=== PATIENT | male | born 1965 | race Caucasian/White ===

== ENCOUNTER 2019-07-01 09:36 | Observation (INO) | payer BC ==
[2019-07-01 13:30] VITALS: BMI 42.8
[2019-07-01] MEDS ORDERED: Ondansetron ODT 4 MG TAB SL PRN (13:35)
[2019-07-01] MEDS ORDERED: Ondansetron PF 4 MG/2 ML Vial IVP PRN (13:35)
[2019-07-01] MEDS ORDERED: Acetaminophen 325 MG TAB PO PRN (13:35)
[2019-07-01] MEDS ORDERED: Dextrose 50% Abboject 50 ML SYRINGE SLOW IVP PRN (15:23)
[2019-07-01] MEDS ORDERED: Dextrose 5% in Water 1,000 ML IV PRN (15:23)
[2019-07-01] MEDS ORDERED: HumaLOG 300 UNITS/3 ML VIAL SC PRN (15:23)
--- NOTE | 2019-07-01 17:23 | ULT ---
Ultrasound Doppler duplex carotid: DATE: 07/01/2019 HISTORY: 54-year-old male with TIA. TECHNIQUE: Grayscale, color-flow, and spectral analysis, of major arteries of neck. FINDINGS: Study limited by body habitus and patient's snoring. Mild to moderate atheromatous plaque at bilatera l proximal internal carotids, including carotid bulbs. Highest peak systolic velocities in the internal carotid arteries: 75 cm/s on the right and 65 cm/s o n the left. ICA/CCA ratios: 0.5 on the right and 0.7 on the left. Vertebral artery flow is antegrade bilaterally. IMPRESSION: 1. Atherosclerosis of bilateral proximal internal carotid arteries. 2. No evidence of hemodynamically significant stenosis.
[2019-07-01] MEDS: Nicotine 14 MG PATCH TD SCH (17:27)
--- NOTE | 2019-07-01 20:32 | HP ---
CHIEF COMPLAINT: Dizziness and slurred speech. HISTORY OF PRESENT ILLNESS: The patient is a 54-year-old male, who works in the [place] [employer] and he went to work last night and started feeling dizzy, lightheaded. 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 He denied any shortness of breath, nausea, vomiting, or chest pain during this episode. He said that this dizziness got better in probably 2 to 3 hours when he was in the emergency room in [place]. He has a history of COPD and sleep apnea. He denied any cough, double vision, headache, numbness, or tingling in his hands or arms, or weakness in any extremity. Apparently, he was hypertensive in the field and one nitroglycerin spray was administered. While in the emergency room, it was noticed that he had some slurred speech, but it was improved, and a decision about treating him with the tPA, was put on hold. Apparently, he had another episode like this two weeks ago which resolved after he took a nap. PAST MEDICAL HISTORY: 1. COPD. 2. Sleep apnea. 3. Claustrophobia. PAST SURGICAL HISTORY: None. SOCIAL HISTORY: He smokes approximately 1 pack of cigarettes per day. He does not drink. He does not use any illicit drugs. FAMILY HISTORY: Father at the age of 77 from ALS and mother had breast cancer and she in her late 60s. ALLERGIES: NONE. MEDICATIONS: 1. ProAir HFA two puffs 4 to 5 times per day. 2. Anoro one puff per day. PRIMARY CARE PHYSICIAN: Dr. Juan Wheeler. Surrogate decision maker, Laurie Osman, patient's . REVIEW OF SYSTEMS: CONSTITUTIONAL: Negative for fever and chills. EYES: Negative for eye pain or eye discharge. ENT: Negative for nasal congestion or sore throat. CARDIOVASCULAR: Negative for chest pain. RESPIRATORY: Negative for shortness of breath during this episode, but he gets short of breath on and off, especially on exertion. GI: Negative for nausea or vomiting. Positive for constipation. GI: Negative for hematuria or dysuria. MUSCULOSKELETAL: Negative for neck pain or back pain. SKIN: Negative for rash or erythema. NEUROLOGIC: Positive for dizziness. Negative for headache. PSYCHIATRIC: Negative for any suicidal or homicidal ideations or any depression. Positive for some anxiety and claustrophobia. PHYSICAL EXAMINATION: GENERAL: He is not in any distress during my visit. VITAL SIGNS: Blood pressure is 132/83, pulse is 73, temperature is 98.5, and O2 saturation is 94% on room air. HEENT: His head is atraumatic and normocephalic. Eyes are PERRLA. Sclerae are nonicteric. Conjunctivae red. Oral mucosa is moist. NECK: Supple. Obese. LUNGS: Clear. HEART: S1 and S2 normal. No S3. No S4. ABDOMEN: Soft, obese, somewhat distended. No organomegaly. Bowel sounds are present. EXTREMITIES: 2+ peripheral edema. Pulses palpable on both tibialis posterior and dorsalis pedis arteries, but somewhat diminished similar bilaterally. NEUROLOGICAL: He is alert and oriented x4. There are no any motor deficits. There are no any sensory deficits. Diadochokinesia is not assessable on the left side. Babinski sign negative bilaterally. LABORATORY DATA: White count of 9.2, hemoglobin 15.5, hematocrit 46.7, platelet count is 230,000. Normal electrolytes and normal kidney function. Glucose 126. Troponin I less than 0.010. BNP less than 10. The rest of chemistry is within normal limits. Urinalysis within normal limits. Urine drug screen negative. Alcohol level negative less than 10. Electrocardiogram personally reviewed by me showed normal sinus rhythm, no ischemic changes. IMAGING DATA: Brain CT, negative for any intracranial findings. Chest x-ray showed may be slightly increased interstitial markings. IMPRESSION: 1. Episode of dizziness and slurred speech, which is recurrent, resolved completely, most likely transient ischemic attack. 2. Chronic obstructive pulmonary disease. 3. Cigarette smoker. 4. Morbid obesity. 5. History of sleep apnea. 6. Claustrophobia. PLAN: Admission for observation. Condition is fair. Activity is bedrest and bathroom privileges. IV Hep-Lock. Carotid Doppler, echocardiogram. We will try to do MRI if he is agreeable. I know that he has bad claustrophobia. We will get Neurology consultation. We will have him on DVT prophylaxis with Lovenox, and we will check his hemoglobin A1c since his glycemia is elevated on his BMP. We will put him on Nicotrol patch 24, and he should be able to go home in the next 24 hours. Job ID: [id number]
[2019-07-01] MEDS: Atorvastatin Calcium 40 MG TAB PO SCH (21:41)
[2019-07-02 04:44] LABS: Hemoglobin A1c 5.7 % (4.0-6.0)
[2019-07-02 04:58] LABS: Cardiac Risk 6.1 (Less than 4.5)
[2019-07-02] MEDS: Aspirin 325 MG TAB PO SCH (08:15)
[2019-07-02] MEDS: FLU VACC QS2019-20(6MOS UP)/PF 60 MCG/0.5 ML SYRINGE IM ONE ×2 (08:16→08:20)
[2019-07-02] MEDS: Enoxaparin Sodium 40 MG/0.4 ML SYRINGE SC SCH (08:18)
[2019-07-02] MEDS: Lorazepam 2 MG/ML VIAL SLOW IVP SCH ×4 (10:39→13:54)
--- NOTE | 2019-07-02 11:42 | CON ---
DATE OF TELEMEDICINE CONSULTATION: 07-02-19 CHIEF COMPLAINT: Dizziness. HISTORY OF PRESENT ILLNESS: The patient reports he was working, he was sitting and picking up something and then sitting on a high chair, and when he tried to get up, he felt dizzy like he was drunk. He felt that he was going to pass out. He felt severely lightheaded. This was not associated with any seizure-like activity or loss of consciousness, vision problems, or other neurological symptoms, sensory or motor symptoms with weakness. He is currently much better. He is back to baseline. He was hypertensive in the field per EMS and he did receive nitroglycerin spray. While in the ER, it was noted he had slurred speech, which improved a few hours later, and he is under stroke evaluation protocol. He had a similar event of dizziness 2 weeks ago. PREVIOUS MEDICAL HISTORY: COPD, sleep apnea, and claustrophobia. PAST SURGICAL HISTORY: None. SOCIAL HISTORY: He smokes 1 pack of cigarettes per day. Does not drink. No drug use described. He works [employer]. FAMILY HISTORY: Father at 77 from ALS and he was hypertensive. Mother at 74. She had myelodysplasia and breast cancer twice. She also had hypertension, coronary artery disease with bypass graft of 5-vessels. The patient has 1 sister and 2 brothers, all of them are healthy, but sister stated there is family history of cardiac issues and cancer through grandparents generation as well. ALLERGIES: NO KNOWN DRUG ALLERGIES. MEDICATIONS: He takes ProAir and Anoro inhalers. REVIEW OF SYSTEMS: PULMONARY: Negative for cough and shortness of breath, but positive for COPD. DERMATOLOGIC: Negative for any rash. HEMATOLOGIC: Negative for bleeding, diathesis, or anemia. NEUROLOGIC: Positive for dizziness. OPHTHALMOLOGIC: Negative for vision problems. CARDIAC: Negative for chest pain or palpitations. ENDOCRINE: Negative for any diabetes. GENITOURINARY: Negative for any bladder infections or dysuria. LABORATORY WORKUP: Glucose 141. Hemoglobin A1c 5.7. Lipid profile is within normal limits. White count 9.2, hemoglobin 15.5, hematocrit 46.7, and platelets 230. Sodium 138, potassium 3.9, chloride 105, BUN 10, creatinine 0.83, and glucose 126. Urinalysis is negative. Urine tox screen is also negative for any opiates or cocaine. His carotid Dopplers were unremarkable. He is pending MRI and CT angiogram. His CT head did not show any acute intracranial findings. PHYSICAL EXAMINATION: VITAL SIGNS: Temperature 98, pulse 68, respiratory rate 18, and O2 sats 92, and blood pressure 133/84. GENERAL APPEARANCE: He is obese gentleman. CHEST: Clear vesicular breathing. CARDIOVASCULAR: S1 and S2 heard. No murmurs. Carotids clear. ABDOMEN: Soft. NEUROLOGIC: Higher intellectual function normal. Orientation to time, place, and person. Appropriate conversation. Cranial nerves; normal extraocular movements. Pupils 2 mm, reactive to light. Normal sensation of face bilaterally. No facial asymmetry noted. Tongue midline. No atrophy noted. Normal elevation of palate. Normal elevation of palate. Motor examination; bulk normal, tone normal, strength 5/5 in iliopsoas, hamstrings, quadriceps, ankle dorsiflexion, plantar flexion, deltoid, biceps, triceps, wrist extension and flexion, finger extension and flexion bilaterally. Deep tendon reflexes 2+ in lower extremities, 1+ in upper extremities. Sensory normal to touch bilaterally in upper and lower extremities. Cerebellar , normal [id number]-ex-kjmi and nhrz-aw-cieq. IMPRESSION: The patient is a 54-year-old man with chronic obstructive pulmonary disease and dizziness. It is unclear why he has these symptoms. At this time, as far as neurological causes of dizziness, we need to make sure his posterior circulation is clean. His carotid Doppler is inconclusive. He is also pending an MRI. TREATMENT RECOMMENDATIONS: 1. Please complete MRI to make sure there is no acute stroke which I doubt. 2. Complete CT angiogram with head and neck CTA to rule out any vascular abnormalities particularly in the posterior circulation. 3. Please also perform orthostatic measurements of blood pressure to make sure there is no other autonomic dysfunction. I will see him as needed. Dr. German will follow tomorrow. Job ID: [id number] [facility]
--- NOTE | 2019-07-02 11:55 | CT ---
CTA HEAD WITH AND WITHOUT CONTRAST: INDICATION: Dizziness, slurred speech. Assess for stroke. COMPARISON: Comparison is made to yesterday's CT head which showed no acute finding. FINDINGS: CT HEAD WITHOUT CONTRAST: No evidence of mass, edema, infarct, or acute interval change. IMPRESSION: No acute finding. CTA HEAD WITH CONTRAST: Multiplanar reconstruction and 3D post processing performed according to angio protocol. The intracranial internal carotid arteries are patent. Atherosclerotic calcifications are seen at th e cavernous portion of both ICAs. This results in mild luminal narrowing bilaterally just proximal t o the carotid terminus. Both minimal cerebral arteries are patent and appear unremarkable. Anterior cerebral arteries are both patent and unremarkable. Basilar artery is patent. Posterior cerebrals are patent and symmetric. IMPRESSION: Atherosclerotic calcification in the cavernous portion of both internal carotid arteries produced mil d stenosis. This does not appear to be hemodynamically significant by NASCET criteria. No proximal stenosis or occlusion involving the cerebral arteries. CTA NECK: Axial tomograms were obtained with multiplanar reconstruction and 3D post processing. HISTORY: Dizziness and slurred speech. FINDINGS: No evidence of stenosis at the origin of the arch vessels. Both common carotid arteries are patent and symmetric. There is atherosclerotic calcification in both carotid bulbs and proximal ICAs bilaterally. This mcintosh s appear to result in moderate stenosis in the right internal carotid artery above the bulb. The deg ree of stenosis is difficult to accurately measure due to the dense calcification; however, it appear s to approach 50% diameter by NASCET criteria. Consider catheter angiogram for accurate evaluation. Atherosclerotic calcification at the left bulb and left ICA also seen, although no evidence of signif icant stenosis seen in the left internal carotid artery. Basilar arteries are patent and symmetric. IMPRESSION: Atherosclerotic calcification in both bulbs, more prominent on the right. There is evidence of moder ate stenosis in the proximal right internal carotid artery. Consider catheter angiogram for accurate stenosis assessment. POS: [facility]
[2019-07-02] MEDS ORDERED: Lorazepam 2 MG/ML VIAL SLOW IVP SCH (12:15)
--- NOTE | 2019-07-02 14:59 | MRI ---
MRI BRAIN NONCONTRAST: DATE: 07/02/2019 HISTORY: 54-year-old male with TIA: Dysarthria and dizziness. FINDINGS: All images are significantly degraded by patient motion. The ventricles are normal in size and config uration. There is no large intra-axial signal abnormality, restricted diffusion, midline shift or any other mass effect, recent intra-axial hemorrhage, or extra-axial fluid collection. IMPRESSION: 1. Limited study. 2. No pathology identified.
[2019-07-02] MEDS: Nicotine 14 MG PATCH TD SCH (15:20)
--- NOTE | 2019-07-02 17:55 | PDOC.HOSPP ---
- Subjective Encounter Date: 07/02/19 Encounter Time: 15:53 Subjective: 54 y/o male with SULEIMAN, tobacco abuse and COPD admitted with transient slurred speech and dizziness. Symptoms has resolved. Patient reportedly had a smiliar symptoms about 2 weeks prior. - Objective Vital Signs & Weight: Vital Signs (12 hours) Temp Pulse Resp BP Pulse Ox 07/02/19 15:50 97.7 F 72 20 157/85 H 90 L 07/02/19 12:30 98.6 F 66 16 145/84 H 94 L 07/02/19 08:03 98.0 F 68 18 133/84 92 L Weight Weight 290 lb I&O: 07/01/19 07/02/19 07/03/19 06:59 06:59 06:59 Intake Total 550 Balance 550 Additional Labs: Accuchecks 07/02/19 07/02/19 07/02/19 17:02 10:47 05:57 POC Glucose 143 H 88 117 H 07/01/19 19:43 POC Glucose 141 H Hospitalist ROS - Medication Medications: Active Medications Generic Name Dose Route Start Last Admin Trade Name Neilq PRN Reason Stop Dose Admin Aspirin 325 mg 07/02/19 09:00 07/02/19 08:15 Aspirin PO 325 mg DAILY HUSSAIN Administration Atorvastatin Calcium 40 mg 07/01/19 21:00 07/01/19 21:41 Lipitor PO 40 mg HS HUSSAIN Administration Enoxaparin Sodium 40 mg 07/02/19 09:00 07/02/19 08:18 Lovenox SC 40 mg 0900 HUSSAIN Administration Lorazepam 1 mg 07/02/19 10:45 07/02/19 12:24 Ativan SLOW IVP 1 mg WILLCALL HUSSAIN Administration Lorazepam 0.5 mg 07/02/19 12:15 07/02/19 13:54 Ativan SLOW IVP 0.5 mg Q15MIN HUSSAIN Administration Nicotine 14 mg 07/01/19 15:00 07/02/19 15:20 Nicoderm Patch TD 14 mg Q24HR HUSSAIN Administration - Exam General Appearance: awake alert General - other findings: obese Eye: anicteric sclera ENT: normocephalic atraumatic, moist mucosa Neck: symmetric, no JVD Neck - other findings: short thick neck with excess soft tissue Heart: RRR, no murmur Respiratory: CTAB, no wheezes, no rales, no ronchi, normal chest expansion Gastrointestinal: soft, non-tender, non-distended, normal bowel sounds Gastrointestinal - other findings: morbidly obese Extremities: no cyanosis, no edema Neurological: cranial nerve grossly intact, no focal deficits Hosp A/P (1) TIA (transient ischemic attack) Code(s): G45.9 - TRANSIENT CEREBRAL ISCHEMIC ATTACK, UNSPECIFIED Status: Acute (2) Morbid obesity Code(s): E66.01 - MORBID (SEVERE) OBESITY DUE TO EXCESS CALORIES Status: Acute (3) SULEIMAN on CPAP Code(s): G47.33 - OBSTRUCTIVE SLEEP APNEA (ADULT) (PEDIATRIC); Z99.89 - DEPENDENCE ON OTHER ENABLING MACHINES AND DEVICES Status: Acute (4) COPD (chronic obstructive pulmonary disease) Status: Acute (5) Atherosclerosis of both carotid arteries Code(s): I65.23 - OCCLUSION AND STENOSIS OF BILATERAL CAROTID ARTERIES Status : Acute (6) Claustrophobia Code(s): F40.240 - CLAUSTROPHOBIA Status: Acute - Plan Awaiting Echo report MRI obtained with sedation Continue statin and aspirin. Continue nicotine patch Smoking cessation education and counselling
[2019-07-02] MEDS: Atorvastatin Calcium 40 MG TAB PO SCH (21:02)
[2019-07-03 07:48] VITALS: BP 146/80; TEMP 98.4
--- NOTE | 2019-07-03 08:33 | PDOC.EVN ---
Event Note - Event Note Event Note: Discharge summary dictated. #[id number]
--- NOTE | 2019-07-03 08:56 | DIS ---
DATE OF ADMISSION: 07/01/2019 DATE OF DISCHARGE: 07/03/2019 DISCHARGE DIAGNOSES: 1. Recurrent Transient ischemic attack. 2. Morbid obesity. 3. Obstructive sleep apnea, on CPAP. 4. Bilateral carotid atherosclerosis. 5. Chronic obstructive pulmonary disease without acute exacerbation. 6. Claustrophobia. 7. Mild mitral regurgitation. 8. Mild to moderate tricuspid regurgitation. CONSULT: Neurology. HOSPITAL COURSE: A 54-year-old male with morbid obesity, obstructive sleep apnea, on CPAP, tobacco abuse and COPD, admitted with transient slurred speech and dizziness. Symptoms soon resolved. The patient reportedly had a similar problem about 2 weeks prior to presentation. Impression of recurrent TIA was made to rule out acute CVA. The patient was evaluated with CT scan of the brain, MRI of the brain, which were both negative for acute infarct. The patient also was further evaluated with echocardiogram, which showed mild mitral regurgitation as well as [id number]-rh-[id number] tricuspid regurgitation. Carotid Dopplers showed moderate bilateral carotid atherosclerosis. Neurology saw the patient and recommended further evaluation with CT angio. CT angio was also consistent with at least moderate bilateral carotid atherosclerosis with no significant hemodynamic stenosis. The patient, who is a chronic smoker, smoking about a doml-dxi-x-half a day was provided with smoking cessation education and counseling. He also was started on aspirin and statin. He remained stable and was subsequently discharged home. PHYSICAL EXAMINATION: VITAL SIGNS: Temperature 98.6, pulse 71, respiratory rate 16, SpO2 of 93% on room air, blood pressure is 123/74. GENERAL: Morbidly obese male, in no obvious distress. Afebrile. Anicteric. Acyanotic. HEENT: Normocephalic, atraumatic. Oral mucosa is moist. NECK: Short thick neck with excess soft tissue. CARDIOVASCULAR: Regular rhythm and rate with normal heart sounds 1 and 2. RESPIRATORY: Fair air entry bilaterally with no obvious crackle or rhonchi or use of accessory muscles. GI: Morbidly obese, soft, nontender, nondistended with normal bowel sounds. EXTREMITIES: Grossly normal looking atraumatic with no edema or erythema. BLIND HOOKER: Conscious and alert oriented x3 with appropriate mental status. Cranial nerves 2 through 12 are grossly intact. The patient moves all extremities. The patient is ambulant. DISCHARGE DISPOSITION: Home. DISCHARGE CONDITION: Improved. FOLLOWUP: With PCP in 1 week. DISCHARGE MEDICATIONS: 1. Albuterol HFA 2 puffs inhalation q.4 hours p.r.n. 2. Sildenafil citrate 100 mg p.r.n. 3. Anoro Ellipta one inhalation daily. 4. Aspirin 325 mg p.o. daily. 5. Lipitor 40 mg p.o. daily. 6. Nicotine patch 21 mg transdermal daily. TIME SPENT: This discharge took about 30 minutes. Job ID: [id number]
[2019-07-03] MEDS: Enoxaparin Sodium 40 MG/0.4 ML SYRINGE SC SCH (09:05)
[2019-07-03] MEDS: Aspirin 325 MG TAB PO SCH (09:05)
== END 2019-07-03 09:37 | disposition home or self-care (01) ==
LOC: ERS 09:36 → 2SE 13:12
PROVIDERS: ADMIT Internal Medicine; ATTEND Internal Medicine
DX: I65.23 Occlusion and stenosis of bilateral carotid arteries (principal); G47.33 Obstructive sleep apnea (adult) (pediatric); J44.9 Chronic obstructive pulmonary disease, unspecified; F40.240 Claustrophobia; F17.210 Nicotine dependence, cigarettes, uncomplicated; I08.1 Rheumatic disorders of both mitral and tricuspid valves; E66.01 Morbid (severe) obesity due to excess calories; Z68.41 Body mass index [BMI] 40.0-44.9, adult; Z79.899 Other long term (current) drug therapy; Z99.89 Dependence on other enabling machines and devices
CPT/HCPCS: 36415; 36416; 70496; 70498; 70551; 80061; 83036; 83525; 90471; 90686; 90732; 93306; 93880; 96372; 96374; 96376; 99284; G0008; G0009; G0378; J1650; J2060

== ENCOUNTER 2020-07-11 18:55 | Observation (INO) | payer BC, OTHER ==
[2020-07-11] MEDS ORDERED: Aspirin Chewable 81 MG TAB ONE (19:54)
[2020-07-11] MEDS ORDERED: Acetaminophen 325 MG TAB PO PRN (21:33)
[2020-07-11] MEDS ORDERED: Acetaminophen 650 MG Suppository PR PRN (21:33)
--- NOTE | 2020-07-11 22:34 | PDOC.HHP ---
Hospitalist HPI - History of Present Illness History of Present Illness: ADMISSION DATE: 07/11/2020 TIME OF ASSESSMENT: 1999 PRIMARY CARE PHYSICIAN: Dr. Nair CHIEF COMPLAINT: Lightheadedness HPI: Mr. Mcmahon is a pleasant 55-year-old gentleman who presents to the emergency department at [facility] due to sudden onset of lightheadedness and "feeling like I was drunk". He denies having any spinning sensation or ataxic gait. Denies any vision changes or speech disturbances. No extremity weakness or numbness. 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 He went inside and checked his blood pressure and noted that it was elevated in the 150s when normally it runs in the 140s or below. He took his afternoon dose of clonidine as well as metoprolol. Patient states he waited some time but continued to feel unwell. He rechecked his blood pressure and noticed that it was further elevated in the 170s. This prompted him to come to the ED for further evaluation. He states shortly after being seen in the ER his symptoms had resolved. His blood pressure eventually normalized without receiving any medications in the ER. He denies having any associated headaches. No nausea or vomiting. He has felt well in recent days and denies having any complaints. All other review systems apart from those mentioned above in HPI are negative. Patient had been concerned due to history of TIA in the past during which he experienced speech changes. Patient states what he felt today was different. ED COURSE: In the emergency department he was initially noted to have an elevated blood pressure of 173/93. Within a couple of minutes this was rechecked and improved to 157/82. An hour later was further improved to 127/79. He received aspirin 324 mg p.o. An EKG was done showing sinus bradycardia with a heart rate of 56. No ST changes or T wave abnormalities. CT head was done showing no acute intracranial process. This was followed by CT angiogram of the head and neck which demonstrated atherosclerotic changes in the cavernous and supraclinoid ICAs bilaterally stable from prior exam dated 07/02/2019. No acute stenosis or occlusion in the proximal anterior cerebral, middle cerebral, posterior cerebral arteries. [place]'s was poorly evaluated therefore further evaluation recommended with an MRI. Dense calcifications noted in both bulbs and proximal ICAs with evidence of hemodynamically significant stenosis in the proximal right ICA which appears stable compared to study done 1 year ago. Catheter angiogram recommended to adequately assess lumen. PAST MEDICAL HISTORY: 1. Hyperlipidemia 2. Hypertension 3. TIA in 2019 4. COPD 5. Obstructive sleep apnea PAST SURGICAL HISTORY: None SOCIAL HISTORY: Patient denies any tobacco use but per ED note he admitted to smoking 2 packs/day and chewing tobacco. Reports social alcohol consumption. Denies any illicit drug use. He lives at home with his family and is fully independent. FAMILY HISTORY: Noncontributory ALLERGIES: No known drug allergies CURRENT MEDICATIONS: 1. Clonidine 2. Metoprolol tartrate 3. Atorvastatin 4. Hydrochlorothiazide 5. ProAir HFA 6. Ellipta - Exam General Appearance: NAD, awake alert General - other findings: Temp 97.9, HR 57, BP 127/79, RR 16, O2 sat 100% on room air Eye: PERRL, anicteric sclera ENT: normocephalic atraumatic, moist mucosa Neck: supple, symmetric, no lymphadenopathy Heart: RRR, no murmur, no gallops, no rubs, normal peripheral pulses Respiratory: CTAB, no wheezes, no rales, no ronchi, normal chest expansion, no tachypnea Gastrointestinal: soft, non-tender, non-distended (obese), normal bowel sounds, no guarding, no rigidity Extremities: no edema Skin: normal turgor, no rashes Neurological: cranial nerve grossly intact, normal sensation to touch, no weakness, no focal deficits Musculoskeletal: normal tone, normal strength, no muscle wasting Musculoskeletal - other findings: power 5/5 in all limbs Psychiatric: normal affect, normal behavior, A&O x 3 Hospitalist H&P A/P - Problem (1) Lightheadedness Code(s): R42 - DIZZINESS AND GIDDINESS Status: Acute Assessment and Plan: Cardiac monitoring. Echo. MRI brain in the AM. Orthostatic BPs. Continue Aspirin 81 mg PO daily. (2) Hypertension Code(s): I10 - ESSENTIAL (PRIMARY) HYPERTENSION Status: Chronic Assessment and Plan: Monitor BP. Resume home medications once verified. (3) Hyperlipidemia Code(s): E78.5 - HYPERLIPIDEMIA, UNSPECIFIED Status: Chronic Assessment and Plan: Continue statin. (4) History of TIA (transient ischemic attack) Code(s): Z86.73 - PRSNL HX OF TIA (TIA), AND CEREB INFRC W/O RESID DEFICITS Status: Acute (5) Atherosclerosis of both carotid arteries Code(s): I65.23 - OCCLUSION AND STENOSIS OF BILATERAL CAROTID ARTERIES Status: Chronic Assessment and Plan: Day team to decide if CV surgery consult indicated. Per report, stable from imaging done a year ago. (6) Tobacco abuse Code(s): Z72.0 - TOBACCO USE Status: Chronic Assessment and Plan: Tobacco cessation counseling. (7) COPD (chronic obstructive pulmonary disease) Status: Chronic Assessment and Plan: Resume ProAir and Ellipta (8) Morbid obesity Code(s): E66.01 - MORBID (SEVERE) OBESITY DUE TO EXCESS CALORIES Status: Chronic (9) SULEIMAN on CPAP Code(s): G47.33 - OBSTRUCTIVE SLEEP APNEA (ADULT) (PEDIATRIC); Z99.89 - DEPENDENCE ON OTHER ENABLING MACHINES AND DEVICES Status: Chronic - Plan Plan: Patient does not have any advanced directives in place nor a MPOA. Unsure of what his wishes might be but is working on getting advanced directives in place with the help of his sister. Case discussed with attending who agrees with plan as above.
[2020-07-11 23:20] VITALS: BMI 41.4
[2020-07-12 05:03] LABS: #Basophils 0.1 thou/uL (0.0-0.2); #Eosinphils 0.3 thou/uL (0.0-0.7); #Lymphocytes 2.7 thou/uL (1.20-3.40); #Monocytes 1.1 thou/uL (0.11-0.59); #Neutrophils 3.7 thou/uL (1.40-6.50); %Eosinophils 3.6 % (0.0-10.0); %Lymphocytes 34.9 % (21.0-51.0); %Monocytes 13.5 % (0.0-10.0); %Neutrophils 47.1 % (42.0-75.0); Hemoglobin 14.9 g/dL (14.0-18.0); Mean Corpuscular HGB CONC 34.2 g/dL (32.0-36.0); Mean Corpuscular Hemoglobin 31.6 pg (27.0-31.0); Mean Corpuscular Volume 92.4 fL (78.0-98.0); Mean Platelet Volume 7.2 fL (7.4-10.4); Platelet Count 210 thou/uL (130-400); RBC Distribution Width 12.3 % (11.5-14.5); Red Blood Cell (RBC) Count 4.71 mill/uL (4.70-6.10); White Blood Cell (WBC) Count 7.8 thou/uL (4.8-10.8)
[2020-07-12 05:29] LABS: Anion Gap 13 mmol/L (10-20); BUN (Urea Nitrogen) 15 mg/dL (8.4-25.7); Calc. Creatinine Clearance 201 mL/min (70-130); Carbon Dioxide 22 mmol/L (22-29); Cardiac Risk 3.2 (Less than 4.5); Chloride 107 mmol/L (98-107); Cholesterol 95 mg/dl (< 200 Desired); Estimated GFR-MDRD Greater than 90; Glucose 106 mg/dL (70-105); HDL Cholesterol 30 mg/dL (>60 Neg Risk); LDL Cholesterol, Calculated 39 mg/dL; Potassium 3.6 mmol/L (3.5-5.1); Sodium 138 mmol/L (136-145); Triglycerides 129 mg/dL (Less than 150)
--- NOTE | 2020-07-12 08:32 | RAD ---
EXAM: Chest 2 views: HISTORY: COPD COMPARISON: 05/30/2020 FINDINGS: There is a normal-sized cardiomediastinal silhouette. There is no evidence of consolidation, mass, or pleural effusion. No acute osseous abnormality. IMPRESSION: No evidence of acute cardiopulmonary disease
[2020-07-12] MEDS ORDERED: Aspirin 81 mg Enteric Coated Tablet PO SCH (09:00)
[2020-07-12] MEDS ORDERED: Famotidine 20 MG TAB PO SCH (09:00)
[2020-07-12 12:02] LABS: SARS-CoV-2 MS2 Positive; SARS-CoV-2 N Gene Negative; SARS-CoV-2 S Gene Negative; SARS-CoV-2 by NAA Not Detected (NotDetected); SARS-CoV-2 orf1ab Negative
--- NOTE | 2020-07-12 13:03 | CON ---
NEUROLOGY CONSULTATION DATE OF CONSULTATION: 07/12/2020 REASON FOR CONSULTATION: Dizziness/lightheadedness, rule out posterior circulation TIA. HISTORY OF PRESENT ILLNESS: Mr. Randall is a pleasant 55-year-old male with history significant for hypertension, hyperlipidemia, TIA in 2019, COPD, and obstructive sleep apnea, presented to the emergency department due to sudden onset lightheadedness and a drunk feeling. He denies room spinning in front of his eyes. The patient denies any focal weakness, focal paresthesias, nausea, vomiting, headache, chest pain, abdominal pain, recent sickness, or recent contact with COVID patients. Per the patient, he checked his blood pressure and noted it was high, so he took the afternoon dose of clonidine and metoprolol and then he continues to feel unwell with dizziness and lightheadedness, so he decided to come to the emergency room for further evaluation. Per patient, his symptoms resolved shortly, and currently he is back to his baseline. In the emergency room, initial blood pressure 173/93, he was given aspirin. Head CT was done, which did not reveal any acute intracranial pathology. CT angiogram of the head and neck did not reveal hemodynamically significant stenosis. There is dense calcification noted in both bulbs and proximal ICAs with evidence of hemodynamically significant stenosis in the proximal right ICA, which appears to be stable as compared to the last study. REVIEW OF SYSTEMS: All systems were reviewed and were negative except the pertinent positives and negatives mentioned in the HPI. PAST MEDICAL HISTORY: Hypertension, hyperlipidemia, TIA in 2019, COPD, obstructive sleep apnea. PAST SURGICAL HISTORY: None. SOCIAL HISTORY: The patient lives at home with his family. Denies alcohol or illegal drug use. He does smoke 2 packs per day and chews tobacco. FAMILY HISTORY: No family history of stroke or seizures. ALLERGIES: NO KNOWN DRUG ALLERGIES. CURRENT HOME MEDICATIONS: 1. Metoprolol. 2. Clonidine. 3. Atorvastatin. 4. Hydrochlorothiazide. 5. ProAir HFA. 6. Ellipta. PHYSICAL EXAMINATION: Temp 97.9, HR 57, BP 127/79, RR 16, O2 sat 100% on room air General Appearance: NAD, awake alert Eye: PERRL, anicteric sclera ENT: normocephalic atraumatic, moist mucosa Neck: supple, symmetric, no lymphadenopathy Heart: RRR, no murmur, no gallops, no rubs, normal peripheral pulses Respiratory: CTAB, no wheezes, no rales, no ronchi, normal chest expansion, no tachypnea Gastrointestinal: soft, non-tender, non-distended (obese), normal bowel sounds, no guarding, no rigidity Extremities: no edema Skin: normal turgor, no rashes Neurological: Mental status; the patient is alert and oriented to person, place, and time. Speech is clear. Recent and remote memory is intact. Fund of knowledge is appropriate. Motor, muscle tone and bulk are normal. Strength 5/5 bilaterally. Sensory intact. Cerebellar, finger-nose testing intact. Gait deferred due to the patient's safety reasons. DATA REVIEWED: I reviewed the CT scan, which did not reveal any acute intracranial pathology. EKG showed normal sinus rhythm. ASSESSMENT AND PLAN: (1) Lightheadedness Code(s): R42 - DIZZINESS AND GIDDINESS Status: Acute (2) Hypertension Code(s): I10 - ESSENTIAL (PRIMARY) HYPERTENSION Status: Chronic (3) Hyperlipidemia Code(s): E78.5 - HYPERLIPIDEMIA, UNSPECIFIED Status: Chronic (4) History of TIA (transient ischemic attack) Code(s): Z86.73 - PRSNL HX OF TIA (TIA), AND CEREB INFRC W/O RESID DEFICITS Status: Acute (5) Atherosclerosis of both carotid arteries Code(s): I65.23 - OCCLUSION AND STENOSIS OF BILATERAL CAROTID ARTERIES Status: Chronic (6) Tobacco abuse Code(s): Z72.0 - TOBACCO USE Status: Chronic (7) COPD (chronic obstructive pulmonary disease) Status: Chronic (8) Morbid obesity Code(s): E66.01 - MORBID (SEVERE) OBESITY DUE TO EXCESS CALORIES Status: Chronic (9) SULEIMAN on CPAP Code(s): G47.33 - OBSTRUCTIVE SLEEP APNEA (ADULT) (PEDIATRIC); Z99.89 - DEPENDENCE ON OTHER ENABLING MACHINES AND DEVICES Status: Chronic Mr. Fred Randall is a 55-year-old male with history significant for hypertension, hyperlipidemia, prior transient ischemic attack, presented with an episode of lightheadedness and dizziness. Neurology consulted for concern of posterior circulation stroke. The patient is unable to tolerate MRI because of claustrophobia. Consider repeat head CT tomorrow. Continue cardiac monitoring and 2D echo to evaluate for left ventricular ejection fraction. Neuro checks every 4 hours. Continue aspirin and high-intensity statin for secondary stroke prevention. Continue home medications. Continue PT/OT/Speech. Continue medical management per primary team. The patient does have arteriosclerosis of both carotid arteries. Consider CV Surgery input. The plan discussed in detail with the patient and also during the MDR rounds. We will continue to follow. Thank you for the consult. Job ID: [id number] MARIO
[2020-07-12] MEDS ORDERED: Lorazepam 2 MG/ML VIAL SLOW IVP PRN (14:19)
[2020-07-12] MEDS ORDERED: Lorazepam 2 MG/ML VIAL SLOW IVP SCH ×2 (14:30)
[2020-07-12 15:24] VITALS: BP 184/86; TEMP 98.1
--- NOTE | 2020-07-12 16:33 | MRI ---
EXAM: MRI of the brain without contrast HISTORY: Dizziness and hypertension COMPARISON: 07/02/2019; CTA brain 07/11/2020 TECHNIQUE: Multiplanar multisequence MR images were obtained of the brain without IV contrast. FINDINGS: The brain demonstrates normal signal intensity on all obtained sequences. No restricted diffusion. No hydronephrosis. No extra-axial fluid collection or intracranial hemorrhage. The expected flow voids are present. Corpus callosum, pituitary, and craniocervical junction are within normal limits. The calvarium and overlying soft tissues are unremarkable. The paranasal sinuses and mastoid air cells are well aerated. IMPRESSION: No evidence of acute intracranial abnormality.
[2020-07-12] MEDS ORDERED: cloNIDine 0.1 MG TAB PO SCH (17:45)
[2020-07-12] MEDS ORDERED: Atorvastatin Calcium 40 MG TAB PO SCH ×2 (21:00)
--- NOTE | 2020-07-13 08:01 | DIS ---
DATE OF ADMISSION: 07/11/2020 DATE OF DISCHARGE: 07/12/2020 DISCHARGE DIAGNOSES: 1. Hypertension. 2. Dizziness. 3. Obesity. 4. Transient ischemic attacks. HOSPITAL COURSE: The patient is a 55-year-old male, who initially presented to the hospital with complaints of lightheadedness. He stated that prior to coming to the hospital, he noticed that his blood pressure was significantly high. He took multiple blood pressure medications without any improvement. At this time, the patient went to the ER, was evaluated, was admitted for possible stroke rule out. The patient appears to have significant anxiety. He has been compliant with his medications. He did have a brain MRI and a CTA. The CTA indicated that he does have dense calcification in both bulbs of the proximal ICAs and there is evidence of hemodynamically significant stenosis in the proximal right internal carotid artery, however, he did have this in 2019. I did discuss this with the patient and the patient's , who was at the bedside, and recommended to follow up with a CV surgeon and I have provided him with that number. He was seen by Neurology, who recommended to do an MRI. He already had a 2D echo done on Dr. Barnard's office. I did evaluate the report which appeared to be stable. The patient's brain MRI indicated no evidence of intracranial abnormalities. The patient at this time felt well. He was then discharged home. HOME MEDICATIONS: He is going to be on; 1. Aspirin 325 daily. 2. Albuterol. 3. Lisinopril was increased from 5 to 20 mg. 4. Atorvastatin 80 mg at bedtime. 5. Clonidine 0.1 mg t.i.d. 6. Metoprolol 25 mg b.i.d., this was decreased from 50 due to some bradycardia. 7. Pantoprazole 40 mg daily. 8. Lasix 40 mg as needed. PHYSICAL EXAMINATION: VITAL SIGNS: On discharge; temperature 98.1, heart rate 66, respiratory rate 16, sats 96% on room air, blood pressure 149/72. GENERAL: He is awake, alert, and oriented x3. Does not appear in distress. CV: S1, S2 present. No murmurs, rubs, or gallops. Again, he will be discharged home. He will follow up with primary and also I have recommended him to follow up with CV Surgery given his abnormal CTA findings. Job ID: [id number]
== END 2020-07-12 19:17 | disposition home or self-care (01) ==
LOC: ERS 18:55 → 2SE 19:52
PROVIDERS: ADMIT Internal Medicine; ATTEND Internal Medicine
DX: R42 Dizziness and giddiness (principal); I10 Essential (primary) hypertension; I65.23 Occlusion and stenosis of bilateral carotid arteries; E78.5 Hyperlipidemia, unspecified; J44.9 Chronic obstructive pulmonary disease, unspecified; G47.33 Obstructive sleep apnea (adult) (pediatric); F17.210 Nicotine dependence, cigarettes, uncomplicated; F17.220 Nicotine dependence, chewing tobacco, uncomplicated; E66.01 Morbid (severe) obesity due to excess calories; Z68.41 Body mass index [BMI] 40.0-44.9, adult; Z86.73 Personal history of transient ischemic attack (TIA), and cerebral infarction without residual deficits; Z79.82 Long term (current) use of aspirin; Z79.899 Other long term (current) drug therapy; Z99.89 Dependence on other enabling machines and devices; Z20.828 Contact with and (suspected) exposure to other viral communicable diseases
CPT/HCPCS: 36415; 70551; 71046; 80048; 80061; 85025; 87635; 93005; 96374; 96376; G0378; J2060; U0003

== ENCOUNTER 2020-07-30 06:50 | Outpatient (CLI) | payer BC ==
[2020-07-30 10:04] LABS: Hemoglobin 15.7 g/dL (14.0-18.0); Mean Corpuscular HGB CONC 34.1 G/DL (32.0-36.0); Mean Corpuscular Hemoglobin 30.5 PG (27.0-33.0); Mean Corpuscular Volume 89.5 fl (80.0-100.0); Mean Platelet Volume 9.7 fl (7.4-10.4); Platelet Count 222 10x3/uL (130-400); Red Blood Cell (RBC) Count 5.14 10x6/uL (4.40-5.80); White Blood Cell (WBC) Count 9.2 10x3/uL (4.5-11.0)
[2020-07-30 10:18] LABS: Anion Gap 14 mmol/L (10-20); BUN (Urea Nitrogen) 19 mg/dL (8.4-25.7); Calc. Creatinine Clearance 0 mL/min (70-130); Calcium 9.2 mg/dL (7.8-10.44); Carbon Dioxide 23 mmol/L (22-29); Chloride 108 mmol/L (98-107); Estimated GFR-MDRD 83; Glucose 107 mg/dL (70-105); Potassium 4.5 mmol/L (3.5-5.1); Sodium 140 mmol/L (136-145)
[2020-07-30 22:24] LABS: SARS-CoV-2 MS2 Positive; SARS-CoV-2 N Gene Negative; SARS-CoV-2 S Gene Negative; SARS-CoV-2 by NAA Not Detected (NotDetected); SARS-CoV-2 orf1ab Negative
== END 2020-07-30 06:51 | disposition home or self-care (01) ==
LOC: LABBT 06:50
PROVIDERS: ATTEND Thoracic Surgery (Cardiothoracic Vascular Surgery)
DX: Z01.812 Encounter for preprocedural laboratory examination (principal); Z20.828 Contact with and (suspected) exposure to other viral communicable diseases; I65.21 Occlusion and stenosis of right carotid artery
CPT/HCPCS: 80048; 85027; 87635; U0003

== ENCOUNTER 2020-07-30 09:30 | Inpatient (IN) | payer BC ==
[2020-08-02] MEDS ORDERED: Midazolam HCl 2 mg/2 ml Vial ONE (06:34)
[2020-08-02] MEDS ORDERED: Fentanyl 100 MCG/2 ML VIAL ONE (06:34)
[2020-08-02] MEDS ORDERED: Phenylephrine 10 MG/ML VIAL ONE (06:35)
[2020-08-02] MEDS ORDERED: Protamine Sulfate 50 MG/5 ML VIAL ONE ×2 (06:37→08:55)
[2020-08-02] MEDS ORDERED: Heparin 5,000 UNITS/ML VIAL ONE (06:37)
[2020-08-02] MEDS ORDERED: Bupivacaine PF 0.5% 30 ML VIAL ONE (06:37)
[2020-08-02] MEDS ORDERED: EPINEPHrine 1 MG/ML AMP ONE (06:37)
[2020-08-02] MEDS ORDERED: SUGAMMADEX SODIUM 200 MG/2 ML VIAL ONE (09:10)
[2020-08-02] MEDS ORDERED: Ondansetron HCl/PF 4 MG/2 ML Vial IVP PRN (09:25)
--- NOTE | 2020-08-02 09:53 | OP ---
DATE OF PROCEDURE: 08/02/2020 PREOPERATIVE DIAGNOSIS: Asymptomatic right carotid stenosis. POSTOPERATIVE DIAGNOSIS: Asymptomatic right carotid stenosis. PROCEDURES PERFORMED: 1. Ultrasound-guided left femoral vein access. 2. Ultrasound interrogation of the right carotid system. 3. Right carotid artery TCAR with a 10 x 40 Enroute stent. ANESTHESIA: General endotracheal, Dr. Kenn Dwyer. ESTIMATED BLOOD LOSS: Less than 50. DRAINS: None. SPECIMENS: None. FLUORO TIME: 1 minute 4 seconds. TOTAL CONTRAST: 16 mL. DESCRIPTION OF PROCEDURE: After proper consent was obtained, the patient was brought to operating room and placed in supine position on the operating table. Appropriate central line and monitors were placed, and general endotracheal anesthesia was induced. Right carotid system was interrogated, and the common carotid artery location marked on the skin. Groins and right neck were prepped and draped in usual sterile fashion. Using ultrasound guidance, the right femoral vein was accessed and femoral sheath was placed. Skin incision was made in a supraclavicular fashion. Dissection through the platysma and between the heads of the sternocleidomastoid was performed with electrocautery. Sternocleidomastoid heads were spread and the common carotid artery dissected free. This was a very deep incision and deep dissection. The patient was systemically heparinized. 5-0 Prolene pursestring suture was placed in the common carotid artery. Access to the carotid artery was obtained with a micropuncture needle and 0.014 micropuncture wire was placed. The micropuncture sheath was placed. Hand-injected arteriogram was performed illuminating the carotid artery and its bifurcation. The 10 x 40 stent was selected. The 0.014 J-wire was then placed and stops short of the carotid bifurcation. The Enroute sheath was placed. The carotid arterial sheath and femoral sheath were then connected and flow established. After an ACT of greater than 250, the common carotid artery was clamped. Reversal of flow was confirmed. The hand-injected arteriogram was performed and marking the carotid bifurcation. The 0.014 wire was passed up into the internal carotid artery at the level of the skullbase. The stent was passed distal to the area of stenosis and deployed. There was good compression of the plaque and a nice smooth pathway through the carotid bifurcation. A second arteriogram was performed in a lateral projection confirming good result. The reversal of flow was terminated by removing the carotid clamp and connection tubing. Protamine was administered. The carotid sheath was removed and pursestring suture was secured. A second pursestring was placed for final hemostasis. The femoral sheath was removed and manual pressure held for hemostasis. After good hemostasis had been obtained, the wound was closed in layers and Dermabond was applied to the skin. The patient was awakened and neurologically intact in the operating room. The patient tolerated the procedure well, was transferred to the intensive care unit in stable condition. Job ID: [id number]
[2020-08-02] MEDS ORDERED: traMADol HCl 50 MG TAB PO PRN ×2 (10:12)
[2020-08-02] MEDS ORDERED: Fentanyl 100 MCG/2 ML VIAL SLOW IVP PRN ×2 (10:30)
[2020-08-02] MEDS ORDERED: Ondansetron PF 4 MG/2 ML Vial IVP PRN (10:30)
[2020-08-02] MEDS ORDERED: Acetaminophen 325 MG TAB PO PRN (10:30)
[2020-08-02] MEDS ORDERED: Nitroglycerin 50 MG/250 ML BOT 250 ML IVPB PRN (10:30)
[2020-08-02] MEDS ORDERED: Promethazine HCl 25 MG/ML VIAL IM PRN (10:30)
[2020-08-02] MEDS ORDERED: PROVENTIL INHALER 6.7 G (200 INHALATIONS) INH PRN (10:30)
[2020-08-02] MEDS ORDERED: hydrALAZINE 20 MG/ML VIAL SLOW IVP PRN (10:30)
[2020-08-02] MEDS ORDERED: Non-Formulary Item 1 EACH (Umeclidinium Brm/Vilanterol Tr [Anoro Ellipta] 62.5 MCG/25 MCG IH SCH (10:30)
[2020-08-02] MEDS ORDERED: Phenylephrine 40 MG in Sodium Chloride 0.9% 250 ML 250 ML IVPB PRN (10:30)
[2020-08-02 11:52] VITALS: BMI 42.3
[2020-08-02] MEDS: Sodium Chloride 0.9% 1,000 ML IV SCH ×2 (12:16→20:01)
[2020-08-02] MEDS: Clopidogrel Bisulfate 75 MG TAB PO SCH (12:16)
[2020-08-02] MEDS: Aspirin Chewable 81 MG TAB PO SCH (12:16)
[2020-08-02] MEDS: Furosemide 40 MG TAB PO SCH (12:23)
[2020-08-02] MEDS ORDERED: Furosemide 40 MG TAB PO SCH (12:30)
[2020-08-02] MEDS ORDERED: Glycopyrrolate 0.2 MG/ML 5 ML SYRINGE ONE (12:55)
[2020-08-02] MEDS ORDERED: Ondansetron PF 4 MG/2 ML Vial ONE (12:55)
[2020-08-02] MEDS ORDERED: Lidocaine 1% PF 5 ML VIAL ONE (12:55)
[2020-08-02] MEDS ORDERED: Rocuronium Bromide 10 MG/ML (10ML VIAL) ONE (12:55)
[2020-08-02] MEDS ORDERED: Atropine Sulfate 0.4 mg/1 ml Vial ONE (12:55)
[2020-08-02] MEDS ORDERED: Dexamethasone 20 MG/5 ML VIAL ONE (12:55)
[2020-08-02] MEDS ORDERED: PROPOFOL 200 MG/20 ML VIAL ONE (12:55)
[2020-08-02] MEDS ORDERED: ePHEDrine 50 MG/ML VIAL ONE (12:55)
[2020-08-02] MEDS: CEFAZOLIN 2 GM in Premix Bag 1 BAG IVPB SCH ×2 (14:25→21:55)
[2020-08-02] MEDS: Metoprolol Tartrate 25 MG TAB PO SCH (20:53)
[2020-08-02] MEDS ORDERED: Atorvastatin Calcium 40 MG TAB PO SCH (21:00)
--- NOTE | 2020-08-03 00:44 | DIS ---
DATE OF ADMISSION: 08/02/2020 DATE OF DISCHARGE: 08/03/2020 DIAGNOSIS: Asymptomatic right carotid stenosis. PROCEDURE: Right carotid TCAR. DESCRIPTION OF HOSPITAL STAY: Mr. Randall underwent a right carotid TCAR without incident. He is being discharged home in good condition to follow up with me in 2 weeks. DISCHARGE MEDICATIONS: Unchanged. Job ID: [id number]
[2020-08-03] MEDS: CEFAZOLIN 2 GM in Premix Bag 1 BAG IVPB SCH (06:32)
[2020-08-03] MEDS ORDERED: Potassium Chloride 8 MEQ TAB PO SCH (08:00)
[2020-08-03] MEDS ORDERED: Lisinopril 5 MG TAB PO SCH (09:00)
[2020-08-03] MEDS: Sodium Chloride 0.9% 1,000 ML IV SCH (09:02)
[2020-08-03] MEDS: Metoprolol Tartrate 25 MG TAB PO SCH (09:02)
[2020-08-03] MEDS: Furosemide 40 MG TAB PO SCH (09:28)
[2020-08-03] MEDS: Aspirin Chewable 81 MG TAB PO SCH (10:28)
[2020-08-03] MEDS: Clopidogrel Bisulfate 75 MG TAB PO SCH (10:28)
[2020-08-03 11:37] VITALS: TEMP 98
== END 2020-08-03 11:45 | disposition home or self-care (01) | DRG 35 ==
LOC: SURG A 08-02 06:03 → CCU 08-02 11:04 → IMCU/EMU 08-03 00:07
PROVIDERS: ADMIT Thoracic Surgery (Cardiothoracic Vascular Surgery); ATTEND Thoracic Surgery (Cardiothoracic Vascular Surgery)
PROC: 037H3DZ Dilation of Right Common Carotid Artery with Intraluminal Device, Percutaneous Approach (ICD-10-PCS; principal; 2020-08-02)
PROC: B343ZZ3 Ultrasonography of Right Common Carotid Artery, Intravascular (ICD-10-PCS; 2020-08-02)
DX: I65.21 Occlusion and stenosis of right carotid artery (principal); Z68.41 Body mass index [BMI] 40.0-44.9, adult; Z20.828 Contact with and (suspected) exposure to other viral communicable diseases; I10 Essential (primary) hypertension; E78.2 Mixed hyperlipidemia; F41.9 Anxiety disorder, unspecified; E66.01 Morbid (severe) obesity due to excess calories; G47.33 Obstructive sleep apnea (adult) (pediatric); Z79.899 Other long term (current) drug therapy; Z79.82 Long term (current) use of aspirin; Z86.73 Personal history of transient ischemic attack (TIA), and cerebral infarction without residual deficits; Z87.891 Personal history of nicotine dependence
CPT/HCPCS: 76000; 80048; 85027; 87635; 94640; C1876; C1884; J0171; J0461; J0690; J1100; J1642; J1644; J2250; J2370; J2405; J2704; J2720; J3010; J3490; J7620; S0020; U0003

== ENCOUNTER 2020-11-20 10:33 | Outpatient (CLI) | payer BC | END 2020-11-20 10:34 | disposition home or self-care (01) | LOC: BICRAD 10:33 | PROVIDERS: ATTEND Internal Medicine Critical Care Medicine | DX: R06.00 Dyspnea, unspecified (principal) | CPT/HCPCS: 71046 ==

== ENCOUNTER 2021-08-24 13:19 | Observation (INO) | payer BC ==
[2021-08-24 13:55] LABS: #Eosinphils 0.3 thou/uL (0.0-0.7); #Lymphocytes 2.1 thou/uL (1.20-3.40); #Monocytes 0.9 thou/uL (0.11-0.59); #Neutrophils 4.3 thou/uL (1.40-6.50); %Basophils 0.6 % (0.0-1.0); %Eosinophils 3.6 % (0.0-10.0); %Lymphocytes 27.2 % (21.0-51.0); %Monocytes 11.9 % (0.0-10.0); %Neutrophils 56.7 % (42.0-75.0); Hemoglobin 13.9 g/dL (14.0-18.0); Mean Corpuscular HGB CONC 34.1 g/dL (32.0-36.0); Mean Corpuscular Hemoglobin 32.4 pg (27.0-31.0); Mean Corpuscular Volume 94.9 fL (78.0-98.0); Mean Platelet Volume 6.7 fL (7.4-10.4); Platelet Count 227 thou/uL (130-400); RBC Distribution Width 11.9 % (11.5-14.5); Red Blood Cell (RBC) Count 4.29 mill/uL (4.70-6.10); White Blood Cell (WBC) Count 7.6 thou/uL (4.8-10.8)
[2021-08-24] MEDS ORDERED: Lorazepam 2 MG/ML VIAL ONE (14:00)
[2021-08-24 14:14] LABS: ALT (SGPT) 24 U/L (8-55); AST (SGOT) 22 U/L (5-34); Albumin 4.1 g/dL (3.5-5.0); Alkaline Phosphatase 83 U/L (40-110); Anion Gap 12 mmol/L (10-20); BUN (Urea Nitrogen) 18 mg/dL (8.4-25.7); Bilirubin, Total 0.9 mg/dL (0.2-1.2); Calc. Creatinine Clearance 0 mL/min (70-130); Calcium 9.3 mg/dL (7.8-10.44); Carbon Dioxide 23 mmol/L (22-29); Chloride 102 mmol/L (98-107); Globulin 2.9 g/dL (2.4-3.5); Glucose 101 mg/dL (70-105); Magnesium 1.9 mg/dL (1.6-2.6); Potassium 3.7 mmol/L (3.5-5.1); Sodium 133 mmol/L (136-145)
[2021-08-24 14:20] LABS: Bilirubin Negative (Negative); Blood, Urine Negative (Negative); Clarity Clear (Clear); Glucose, Urine (Dipstick) Normal (Negative); Ketone, Urine Negative (Negative); Leukocyte Negative Leu/uL (Negative); Nitrite Negative (Negative); Protein, Urine (Dipstick) Negative (Neg-Trace); Specific Gravity, Urine 1.019 (1.002-1.036); Urobilinogen Normal mg/dL (Less than 2)
[2021-08-24] MEDS ORDERED: Acetaminophen 325 MG TAB PO PRN (16:07)
[2021-08-24 19:32] VITALS: BMI 45.8
[2021-08-24] MEDS ORDERED: Albuterol Sulfate 2.5 mg/3 ml Neb NEB PRN (20:10)
[2021-08-24] MEDS: Atorvastatin Calcium 40 MG TAB PO SCH (21:18)
[2021-08-24 21:46] LABS: SARS-CoV-2 PCR by NAA Not Detected (NotDetected)
[2021-08-25 05:56] LABS: Anion Gap 11 mmol/L (10-20); BUN (Urea Nitrogen) 13 mg/dL (8.4-25.7); Calc. Creatinine Clearance 199 mL/min (70-130); Calcium 9.4 mg/dL (7.8-10.44); Carbon Dioxide 25 mmol/L (22-29); Chloride 101 mmol/L (98-107); Glucose 100 mg/dL (70-105); Potassium 3.8 mmol/L (3.5-5.1); Sodium 133 mmol/L (136-145)
[2021-08-25 07:02] LABS: #Eosinphils 0.3 thou/uL (0.0-0.7); #Lymphocytes 1.8 thou/uL (1.20-3.40); #Monocytes 0.8 thou/uL (0.11-0.59); #Neutrophils 4.1 thou/uL (1.40-6.50); %Basophils 0.6 % (0.0-1.0); %Eosinophils 4.2 % (0.0-10.0); %Lymphocytes 25.4 % (21.0-51.0); %Monocytes 10.8 % (0.0-10.0); Hemoglobin 14.1 g/dL (14.0-18.0); Mean Corpuscular HGB CONC 34.1 g/dL (32.0-36.0); Mean Corpuscular Hemoglobin 32.5 pg (27.0-31.0); Mean Corpuscular Volume 95.3 fL (78.0-98.0); Mean Platelet Volume 6.7 fL (7.4-10.4); Platelet Count 209 thou/uL (130-400); RBC Distribution Width 11.9 % (11.5-14.5); Red Blood Cell (RBC) Count 4.34 mill/uL (4.70-6.10)
[2021-08-25] MEDS ORDERED: Lisinopril 5 MG TAB PO SCH ×2 (09:00)
[2021-08-25] MEDS ORDERED: FLU VACC QS2021-22(6MOS UP)/PF 60 MCG/0.5 ML SYRINGE IM ONE (09:00)
[2021-08-25] MEDS: Lisinopril 20 MG TAB PO SCH (09:40)
[2021-08-25] MEDS: Donepezil HCl 10 MG TAB PO SCH (09:40)
[2021-08-25] MEDS: Tamsulosin HCl 0.4 MG CAP PO SCH (09:40)
[2021-08-25] MEDS: Aspirin 325 MG TAB PO SCH (09:41)
[2021-08-25] MEDS: Atorvastatin Calcium 40 MG TAB PO SCH (20:21)
[2021-08-26 05:29] LABS: #Eosinphils 0.3 thou/uL (0.0-0.7); #Lymphocytes 1.9 thou/uL (1.20-3.40); #Monocytes 0.8 thou/uL (0.11-0.59); #Neutrophils 4.1 thou/uL (1.40-6.50); %Basophils 0.3 % (0.0-1.0); %Eosinophils 4.3 % (0.0-10.0); %Lymphocytes 26.7 % (21.0-51.0); %Monocytes 11.6 % (0.0-10.0); Hemoglobin 14.3 g/dL (14.0-18.0); Mean Corpuscular Hemoglobin 32.5 pg (27.0-31.0); Mean Corpuscular Volume 95.4 fL (78.0-98.0); Mean Platelet Volume 6.6 fL (7.4-10.4); Platelet Count 221 thou/uL (130-400); White Blood Cell (WBC) Count 7.2 thou/uL (4.8-10.8)
[2021-08-26 05:52] LABS: Anion Gap 12 mmol/L (10-20); BUN (Urea Nitrogen) 14 mg/dL (8.4-25.7); Calc. Creatinine Clearance 197 mL/min (70-130); Carbon Dioxide 27 mmol/L (22-29); Chloride 101 mmol/L (98-107); Glucose 111 mg/dL (70-105); Potassium 3.6 mmol/L (3.5-5.1); Sodium 136 mmol/L (136-145)
[2021-08-26] MEDS: Aspirin 325 MG TAB PO SCH (08:04)
[2021-08-26] MEDS: Lisinopril 20 MG TAB PO SCH (08:06)
[2021-08-26] MEDS: Donepezil HCl 10 MG TAB PO SCH (08:06)
[2021-08-26] MEDS: Tamsulosin HCl 0.4 MG CAP PO SCH (08:07)
[2021-08-26 12:05] VITALS: BP 118/58; TEMP 98
== END 2021-08-26 16:30 | disposition home or self-care (01) ==
LOC: ERS 13:19 → 2SW 16:09
PROVIDERS: ADMIT Student in an Organized Health Care Education/Training Program; ATTEND Internal Medicine
DX: R55 Syncope and collapse (principal); R00.1 Bradycardia, unspecified; E87.1 Hypo-osmolality and hyponatremia; E78.5 Hyperlipidemia, unspecified; I10 Essential (primary) hypertension; G47.33 Obstructive sleep apnea (adult) (pediatric); J44.9 Chronic obstructive pulmonary disease, unspecified; G31.84 Mild cognitive impairment of uncertain or unknown etiology; G62.9 Polyneuropathy, unspecified; Q21.1 Atrial septal defect; Z86.73 Personal history of transient ischemic attack (TIA), and cerebral infarction without residual deficits; Z87.891 Personal history of nicotine dependence; Z79.82 Long term (current) use of aspirin; Z79.899 Other long term (current) drug therapy; Z95.820 Peripheral vascular angioplasty status with implants and grafts; Z20.822 Contact with and (suspected) exposure to COVID-19
CPT/HCPCS: 36415; 70450; 71045; 80048; 80053; 81003; 83735; 83880; 84443; 84484; 85025; 93005; 93306; 93880; 96374; G0378; J2060; J7620; U0003; U0005

== ENCOUNTER 2024-03-08 10:24 | Outpatient (CLI) | payer MEDICARE ==
[2024-03-08 11:26] LABS: #Basophils 0.07 10x3/uL (0.0-0.2); #Eosinphils 0.38 10x3/uL (0.0-0.5); #Monocytes 0.78 10x3/uL (0.0-1.1); %Basophils 0.9 % (0.0-2.0); %Eosinophils 4.7 % (0.0-6.0); %Lymphocytes 24.8 % (18.0-47.0); %Monocytes 9.7 % (0.0-10.0); %Neutrophils 59.5 % (40.0-75.0); Hematocrit 40.7 % (38.8-50.0); Hemoglobin 14.1 g/dL (13.5-17.5); Mean Corpuscular HGB CONC 34.6 g/dL (32.0-36.0); Mean Corpuscular Hemoglobin 31.3 pg (27.0-33.0); Mean Corpuscular Volume 90.4 fL (81.2-95.1); Mean Platelet Volume 9.1 fL (7.4-10.4); Platelet Count 266 10x3/uL (150-450); RBC Distribution Width 12.8 % (11.5-14.5); White Blood Cell (WBC) Count 8.1 10x3/uL (3.5-10.5)
[2024-03-08 11:54] LABS: ALT (SGPT) 29 U/L (8-55); AST (SGOT) 22 U/L (5-34); Albumin 3.8 g/dL (3.5-5.0); Alkaline Phosphatase 96 U/L (40-110); Anion Gap 13 mmol/L (10-20); BUN (Urea Nitrogen) 20 mg/dL (8.4-25.7); Bilirubin, Direct 0.3 mg/dL (0.1-0.3); Bilirubin, Total 0.6 mg/dL (0.2-1.2); Calc. Creatinine Clearance 0 mL/min (70-130); Calcium 9.9 mg/dL (7.8-10.44); Carbon Dioxide 26 mmol/L (22-29); Chloride 104 mmol/L (98-107); Estimated GFR 99; Globulin 3.7 g/dL (2.4-3.5); Glucose 177 mg/dL (70-105); Potassium 4.2 mmol/L (3.5-5.1); Protein, Total 7.5 g/dL (6.0-8.3); Sodium 139 mmol/L (136-145)
== END 2024-03-08 10:25 | disposition home or self-care (01) ==
LOC: LABBT 10:24
PROVIDERS: ATTEND Internal Medicine Cardiovascular Disease
DX: Z01.812 Encounter for preprocedural laboratory examination (principal)
CPT/HCPCS: 80053; 80076; 85025

== ENCOUNTER → 2024-03-13 | Day surgery (SDC) | payer MEDICARE ==
[2024-03-08 11:02] VITALS: BMI 47.2
[2024-03-13 08:19] LABS: Cardiac Risk 3.2 (Less than 4.5)
== END ==
LOC: CCL 06:40
PROVIDERS: ATTEND Internal Medicine Cardiovascular Disease
PROC: 4A023N7 Measurement of Cardiac Sampling and Pressure, Left Heart, Percutaneous Approach (ICD-10-PCS; principal; 2024-03-13)
PROC: B200YZZ Plain Radiography of Single Coronary Artery using Other Contrast (ICD-10-PCS; 2024-03-13)
DX: I25.10 Atherosclerotic heart disease of native coronary artery without angina pectoris (principal); I10 Essential (primary) hypertension; G47.33 Obstructive sleep apnea (adult) (pediatric); J44.9 Chronic obstructive pulmonary disease, unspecified; E78.5 Hyperlipidemia, unspecified; R94.31 Abnormal electrocardiogram [ECG] [EKG]; E66.01 Morbid (severe) obesity due to excess calories; Z68.42 Body mass index [BMI] 45.0-49.9, adult; Z87.891 Personal history of nicotine dependence; Z86.73 Personal history of transient ischemic attack (TIA), and cerebral infarction without residual deficits; Z79.82 Long term (current) use of aspirin; Z79.899 Other long term (current) drug therapy
CPT/HCPCS: 80061; 93454; C1769 ×2; C1887; J1644; J2250; J3010; 99152; 99153; Q9967

== ENCOUNTER 2024-03-14 08:40 | Outpatient (CLI) | payer MEDICARE | END 2024-03-14 08:41 | disposition home or self-care (01) | LOC: LABBT 08:40 | PROVIDERS: ATTEND Thoracic Surgery (Cardiothoracic Vascular Surgery) | DX: Z53.9 Procedure and treatment not carried out, unspecified reason (principal) | CPT/HCPCS: 86850; 86900; 86901 ==

== ENCOUNTER 2024-03-16 06:18 | Inpatient (IN) | payer MEDICARE ==
[2024-03-16] MEDS ORDERED: EPINEPHrine 1 MG/ML VIAL ONE ×2 (06:34→08:10)
[2024-03-16] MEDS ORDERED: Dexamethasone 4 mg/ml Vial ONE (06:34)
[2024-03-16] MEDS ORDERED: PHENYLEPHRINE-NS 100 MCG/ML 10 ML SYRINGE ONE ×2 (06:35→11:02)
[2024-03-16] MEDS ORDERED: Albumin 5% 500 ML ONE (06:35)
[2024-03-16] MEDS ORDERED: Bupivacaine PF 0.5% 30 ML VIAL ONE (06:35)
[2024-03-16] MEDS ORDERED: Lidocaine 1% MPF 2 ML VIAL ONE ×2 (07:05→07:52)
[2024-03-16] MEDS ORDERED: CEFAZOLIN 2 GM VIAL ONE (07:05)
[2024-03-16] MEDS ORDERED: Sodium Chloride 0.9% 100 ML ONE (07:06)
[2024-03-16] MEDS ORDERED: Albuterol 2.5 MG (3 mL) NEB ONE (07:36)
[2024-03-16] MEDS ORDERED: Heparin 10,000 UNITS/1 ML VIAL 30,000 UNITS in Sodium Chloride 0.9% 1,000 ML FS SCH (07:45)
[2024-03-16] MEDS ORDERED: Ondansetron ODT 4 MG TAB ONE (07:59)
[2024-03-16] MEDS ORDERED: PROPOFOL 20 ML ONE (08:00)
[2024-03-16] MEDS ORDERED: Midazolam HCl 2 mg/2 ml Vial ONE (08:00)
[2024-03-16] MEDS ORDERED: Fentanyl 250 MCG/5 ML VIAL ONE (08:00)
[2024-03-16] MEDS ORDERED: Vasopressin 20 UNITS/ML VIAL ONE (08:06)
[2024-03-16] MEDS ORDERED: Norepinephrine 4 MG/4 ML VIAL ONE (08:07)
[2024-03-16] MEDS ORDERED: Vecuronium 10 MG VIAL ONE (08:29)
[2024-03-16] MEDS ORDERED: Mannitol 12.5 GM/50 ML ONE (08:29)
[2024-03-16] MEDS ORDERED: Potassium Chloride 60 mEq (30 mL) VIAL ONE (08:29)
[2024-03-16] MEDS ORDERED: Aminocaproic Acid 5 GM/20 ML VIAL ONE (08:29)
[2024-03-16] MEDS ORDERED: Heparin 30,000 units/30 ml VIAL ONE (08:29)
[2024-03-16] MEDS ORDERED: Thrombin 5000 UNITS/5 ML VIAL ONE (08:29)
[2024-03-16] MEDS ORDERED: Heparin 5,000 UNITS/ML VIAL ONE (08:29)
[2024-03-16] MEDS ORDERED: Sodium Bicarb 50 mEq/50 ML VIAL ONE (08:29)
[2024-03-16] MEDS ORDERED: Vancomycin 1 GM VIAL ONE (08:29)
[2024-03-16] MEDS ORDERED: Magnesium 5 GM/10 ML VIAL ONE (08:29)
[2024-03-16] MEDS ORDERED: Rocuronium Bromide 10 MG/ML (10ML VIAL) ONE (08:29)
[2024-03-16] MEDS ORDERED: Cardioplegic Soln 1,000 ML BAG ONE (08:29)
[2024-03-16] MEDS ORDERED: Calcium Chloride 1 GM/10 ML Abboject SYRINGE ONE (08:29)
[2024-03-16] MEDS ORDERED: Papaverine 60 MG/2 ML VIAL ONE (08:29)
[2024-03-16] MEDS ORDERED: SUCCINYLCHOLINE/SOD CL,ISO/PF 200 MG/10 ML SYRINGE FS ONE (08:29)
[2024-03-16] MEDS ORDERED: Lidocaine 2% PF 100 mg/5 ml Syringe ONE (08:29)
[2024-03-16] MEDS ORDERED: Protamine Sulfate 250 MG/25 ML VIAL ONE (08:29)
[2024-03-16] MEDS ORDERED: Milrinone 10 MG/10 ML VIAL ONE (10:19)
[2024-03-16] MEDS ORDERED: hydrALAZINE 20 MG/ML VIAL SLOW IVP PRN (12:21)
[2024-03-16] MEDS ORDERED: Bisacodyl 10 MG SUPP PR PRN (12:21)
[2024-03-16] MEDS ORDERED: Mag-Al 1200 mg/1200 mg/30 ML UDCUP PO PRN (12:21)
[2024-03-16] MEDS ORDERED: fentaNYL 50 mcg/mL 1 mL Vial SLOW IVP PRN ×2 (12:21)
[2024-03-16] MEDS ORDERED: NOREPINEPHRINE 8 MG/250 ML-D5W 250 ML IVPB PRN (12:21)
[2024-03-16] MEDS ORDERED: Ipratropium/Albuterol 3 ML NEB NEB PRN (12:21)
[2024-03-16] MEDS ORDERED: Ondansetron PF 4 MG/2 ML Vial IVP PRN (12:21)
[2024-03-16] MEDS ORDERED: Nitroglycerin 50 MG/250 ML BOT 250 ML IVPB PRN (12:21)
[2024-03-16] MEDS ORDERED: Albumin 5% 12.5 GM (250 mL) BOT IVPB PRN (12:21)
[2024-03-16] MEDS ORDERED: Guaifenesin DM 100-10/5 ML UDCUP PO PRN (12:21)
[2024-03-16] MEDS ORDERED: Potassium Chloride 20 MEQ (100 mL) BAG IVPB PRN (12:21)
[2024-03-16] MEDS ORDERED: Promethazine HCl 25 MG/ML VIAL IM PRN (12:21)
[2024-03-16] MEDS ORDERED: Bisacodyl 5 MG TAB PO PRN (12:21)
[2024-03-16 12:38] LABS: Actual Bicarbonate (HCO3a) 23.9 mEq/L (22-28); Base Excess (BEa) -3.9 mEq/L (-2.0 to +3.0); CO2 Tension 56.4 mmHg (35.0-45.0); Carboxyhemoglobin (COHb) 0.5 gm% (0.0-3.0); Hematocrit-ABG 35 % (42.0-52.0); Hemoglobin (Hb) 11.8 g/dL (14.0-18.0); O2 Tension (PaO2), arterial 91.9 mmHg (80.0-100.0); Potassium - ABG Lab 5.25 mmol/L (3.70-5.30); pH, Arterial 7.245 (7.35-7.45)
[2024-03-16 12:39] LABS: Puncture Site Arterial Line
[2024-03-16] MEDS: Albuterol 2.5 MG (3 mL) NEB NEB SCH (12:42)
[2024-03-16] MEDS: Ipratropium/Albuterol 3 ML NEB NEB SCH (12:43)
[2024-03-16] MEDS ORDERED: Dextrose 50% Abboject 50 ML SYRINGE SLOW IVP PRN (12:45)
[2024-03-16] MEDS ORDERED: Glucagon 1 MG/ML KIT SC PRN (12:45)
[2024-03-16] MEDS: Morphine 2 MG/ML VIAL SLOW IVP PRN (12:45)
[2024-03-16] MEDS ORDERED: Dextrose 5% in Water 1,000 ML IV PRN (12:45)
[2024-03-16 12:50] LABS: Hematocrit 33.3 % (42.0-52.0); Hemoglobin 11.1 g/dL (14.0-18.0); Mean Corpuscular HGB CONC 33.3 g/dL (32.0-36.0); Mean Corpuscular Hemoglobin 31.2 pg (27.0-31.0); Mean Corpuscular Volume 93.5 fL (78.0-98.0); Mean Platelet Volume 9.1 fL (7.4-10.4); Platelet Count 265 10x3/uL (130-400); RBC Distribution Width 12.9 % (11.5-14.5); Red Blood Cell (RBC) Count 3.56 mill/uL (4.70-6.10)
[2024-03-16 13:00] LABS: INR-International Normal Ratio 1.2; Prothrombin Time 14.9 sec (12.0-14.7)
[2024-03-16 13:06] LABS: Anion Gap 15 mmol/L (10-20); BUN (Urea Nitrogen) 12 mg/dL (8.4-25.7); Calc. Creatinine Clearance 0 mL/min (70-130); Calcium 8.4 mg/dL (7.8-10.44); Carbon Dioxide 23 mmol/L (22-29); Chloride 106 mmol/L (98-107); Estimated GFR 99; Glucose 189 mg/dL (70-105); Potassium 5.4 mmol/L (3.5-5.1); Sodium 139 mmol/L (136-145)
[2024-03-16] MEDS: Ketorolac Tromethamine 30 MG (1 mL) VIAL IVP SCH ×2 (13:10→17:38)
[2024-03-16] MEDS: Magnesium 2 GM/50 ML(in water) 2 GM in Premix 1 BAG IVPB SCH (13:11)
[2024-03-16] MEDS: D5 1/2 NS w/20 mEq KCL 1,000 ML IV SCH (13:11)
[2024-03-16] MEDS: Insulin Regular, Human 100 UNIT/ML 10 ML VIAL SC PRN (13:18)
[2024-03-16 13:19] LABS: Anisocytosis SLIGHT = 6-15 cells HPF (0-5); Band 5 % (5-11); Burr Cells SLIGHT = 2-5 cells HPF (0-1); Lymphocytes 7 % (21-51); Metamyelocyte 1 % (0-0); Monocytes 3 % (0-10); Neutrophil 84 % (42-75); Nucleated RBC (Manual Ct) 1 % (0); Platelet Adequacy Comment Platelets Normal; Polychromasia SLIGHT = 2-3 cells HPF (0-2)
[2024-03-16 13:49] VITALS: BMI 104.1
[2024-03-16 13:49] LABS: Actual Bicarbonate (HCO3a) 23.9 mEq/L (22-28); CO2 Tension 45.5 mmHg (35.0-45.0); Calcium, Ionized (arterial) 1.09 mmol/L (1.12-1.30); Carboxyhemoglobin (COHb) 0.6 gm% (0.0-3.0); Hematocrit-ABG 33 % (42.0-52.0); Hemoglobin (Hb) 11.2 g/dL (14.0-18.0); O2 Tension (PaO2), arterial 93.9 mmHg (80.0-100.0); Potassium - ABG Lab 4.51 mmol/L (3.70-5.30); Puncture Site ALINE; pH, Arterial 7.338 (7.35-7.45)
[2024-03-16 13:50] LABS: ALV-art Gradient 134.425 mmHg (0-20)
[2024-03-16] MEDS: Insulin Reg, Human 100 UNITS in Sodium Chloride 0.9% 100 ML IVPB SCH (14:47)
[2024-03-16] MEDS: CEFAZOLIN 2 GM in Sodium Chloride 0.9% 100 ML IVPB SCH (16:13)
[2024-03-16] MEDS: Albumin 5% 12.5 GM (250 mL) BOT IVPB PRN (17:53)
[2024-03-16 17:59] LABS: Hemoglobin 10.9 g/dL (14.0-18.0)
[2024-03-16 18:07] LABS: Potassium 4.8 mmol/L (3.5-5.1)
[2024-03-16] MEDS: Famotidine/PF 20 mg/2ml Vial SLOW IVP SCH (20:25)
[2024-03-16] MEDS: Sertraline 100 MG TAB PO SCH (20:25)
[2024-03-16] MEDS: Donepezil HCl 10 MG TAB PO SCH (20:25)
[2024-03-17] MEDS: INSULIN REGULAR IN 0.9 % NACL 100 UNITS in Premix 1 BAG IVPB SCH (03:03)
[2024-03-17] MEDS: traMADol HCl 50 MG TAB PO PRN ×2 (05:44→09:02)
[2024-03-17 05:51] LABS: #Basophils Less than 0.03 10x3/uL (0.0-0.2); #Eosinphils Less than 0.03 10x3/uL (0.0-0.7); %Basophils 0.2 % (0.0-1.0); %Lymphocytes 7.5 % (21.0-51.0); %Monocytes 7.3 % (0.0-10.0); %Neutrophils 84.6 % (42.0-75.0); Hematocrit 28.4 % (42.0-52.0); Hemoglobin 9.6 g/dL (14.0-18.0); Mean Corpuscular HGB CONC 33.8 g/dL (32.0-36.0); Mean Corpuscular Hemoglobin 30.4 pg (27.0-31.0); Mean Corpuscular Volume 89.9 fL (78.0-98.0); Mean Platelet Volume 9.7 fL (7.4-10.4); Platelet Count 219 10x3/uL (130-400); RBC Distribution Width 13.2 % (11.5-14.5); Red Blood Cell (RBC) Count 3.16 mill/uL (4.70-6.10)
[2024-03-17 06:03] LABS: Anion Gap 15 mmol/L (10-20); BUN (Urea Nitrogen) 16 mg/dL (8.4-25.7); Calc. Creatinine Clearance 500 mL/min (70-130); Calcium 8.4 mg/dL (7.8-10.44); Carbon Dioxide 22 mmol/L (22-29); Chloride 107 mmol/L (98-107); Estimated GFR 105; Glucose 129 mg/dL (70-105); Potassium 4.2 mmol/L (3.5-5.1); Sodium 140 mmol/L (136-145)
[2024-03-17] MEDS: Magnesium 2 GM/50 ML(in water) 2 GM in Premix 1 BAG IVPB SCH (08:56)
[2024-03-17] MEDS: Pantoprazole DR 40 MG TAB PO SCH (08:56)
[2024-03-17] MEDS: Aspirin 325 MG TAB PO SCH (08:56)
[2024-03-17] MEDS: Atorvastatin Calcium 40 MG TAB PO SCH (08:56)
[2024-03-17] MEDS ORDERED: Insulin Glargine 30 UNITS/0.3 ML VIAL SC PRN (12:39)
[2024-03-17 13:03] LABS: Actual Bicarbonate (HCO3a) 26.9 mEq/L (22-28); Analyzer IN Cardio OR; Base Excess (BEa) 0.3 mEq/L (-2.0 to +3.0); CO2 Tension 51.3 mmHg (35.0-45.0); Calcium, Ionized (arterial) 1.13 mmol/L (1.12-1.30); Carboxyhemoglobin (COHb) 0.6 gm% (0.0-3.0); Hematocrit-ABG 38 % (42.0-52.0); O2 Tension (PaO2), arterial 233.1 mmHg (80.0-100.0); Potassium - ABG Lab 5.74 mmol/L (3.70-5.30); pH, Arterial 7.337 (7.35-7.45)
[2024-03-17 13:03] LABS: Actual Bicarbonate (HCO3a) 25.7 mEq/L (22-28); Analyzer IN Cardio OR; Base Excess (BEa) -1.5 mEq/L (-2.0 to +3.0); CO2 Tension 54.1 mmHg (35.0-45.0); Calcium, Ionized (arterial) 1.14 mmol/L (1.12-1.30); Carboxyhemoglobin (COHb) 0.6 gm% (0.0-3.0); Hematocrit-ABG 37 % (42.0-52.0); Hemoglobin (Hb) 12.7 g/dL (14.0-18.0); Potassium - ABG Lab 4.71 mmol/L (3.70-5.30); pH, Arterial 7.294 (7.35-7.45)
[2024-03-17 13:04] LABS: Analyzer IN Cardio OR; Base Excess (BEa) -0.8 mEq/L (-2.0 to +3.0); CO2 Tension 46.4 mmHg (35.0-45.0); Calcium, Ionized (arterial) 1.05 mmol/L (1.12-1.30); Carboxyhemoglobin (COHb) 0.3 gm% (0.0-3.0); Hematocrit-ABG 31 % (42.0-52.0); Hemoglobin (Hb) 10.6 g/dL (14.0-18.0); O2 Tension (PaO2), arterial 211.9 mmHg (80.0-100.0); pH, Arterial 7.349 (7.35-7.45)
[2024-03-17 13:04] LABS: Actual Bicarbonate (HCO3a) 23.5 mEq/L (22-28); Analyzer IN Cardio OR; Base Excess (BEa) -4.9 mEq/L (-2.0 to +3.0); Carboxyhemoglobin (COHb) 0.3 gm% (0.0-3.0); Hematocrit-ABG 30 % (42.0-52.0); Hemoglobin (Hb) 10.1 g/dL (14.0-18.0); O2 Tension (PaO2), arterial 258.5 mmHg (80.0-100.0)
[2024-03-17 13:06] LABS: Actual Bicarbonate (HCO3a) 25.9 mEq/L (22-28); Analyzer IN Cardio OR; Base Excess (BEa) -2.1 mEq/L (-2.0 to +3.0); CO2 Tension 60.8 mmHg (35.0-45.0); Calcium, Ionized (arterial) 1.12 mmol/L (1.12-1.30); Carboxyhemoglobin (COHb) 0.3 gm% (0.0-3.0); Hematocrit-ABG 33 % (42.0-52.0); Hemoglobin (Hb) 11.1 g/dL (14.0-18.0); O2 Tension (PaO2), arterial 352.4 mmHg (80.0-100.0); Potassium - ABG Lab 5.63 mmol/L (3.70-5.30); Puncture Site Arterial Line; pH, Arterial 7.247 (7.35-7.45)
[2024-03-17 13:07] LABS: Puncture Site Arterial Line
[2024-03-17 13:07] LABS: Puncture Site Arterial Line
[2024-03-17 13:09] LABS: CO2 Tension 61.5 mmHg (35.0-45.0); Potassium - ABG Lab 6.33 mmol/L (3.70-5.30); Puncture Site Arterial Line
[2024-03-17 13:09] LABS: Puncture Site Arterial Line
[2024-03-17] MEDS ORDERED: Mineral Oil ENEMA PR PRN (13:29)
[2024-03-17] MEDS ORDERED: Nitroglycerin 0.4 MG TAB (25 Tab Bottle) SL PRN (13:29)
[2024-03-17] MEDS ORDERED: Bisacodyl 10 MG SUPP PR PRN (13:29)
[2024-03-17] MEDS ORDERED: Bisacodyl 5 MG TAB PO PRN (13:29)
[2024-03-17] MEDS ORDERED: Milk Of Magnesia 30 ML UDCUP PO PRN (13:29)
[2024-03-17] MEDS ORDERED: Artificial Tear Ophth Sol 15 ML BOT EA EYE PRN (13:29)
[2024-03-17] MEDS: Furosemide 40 MG (4 mL) VIAL SLOW IVP SCH (14:07)
[2024-03-18] MEDS: traMADol HCl 50 MG TAB PO PRN (03:15)
[2024-03-18] MEDS ORDERED: Potassium Chloride 10 MEQ TAB PO SCH (08:00)
[2024-03-18] MEDS ORDERED: Furosemide 40 MG TAB PO SCH (09:00)
[2024-03-18] MEDS: Furosemide 40 MG TAB PO SCH (10:04)
[2024-03-18] MEDS: Aspirin 325 mg Enteric Coated Tablet PO SCH (10:05)
[2024-03-18] MEDS: Potassium Chloride 10 MEQ TAB PO SCH (10:05)
[2024-03-19] MEDS: Guaifenesin DM 100-10/5 ML UDCUP PO PRN (12:41)
[2024-03-20] MEDS: Metoprolol Tartrate 25 MG TAB PO SCH (17:46)
[2024-03-21] MEDS: Metoprolol Tartrate 25 MG TAB PO SCH (09:19)
[2024-03-21] MEDS: Acetaminophen 325 MG TAB PO PRN (18:02)
[2024-03-22] MEDS ORDERED: Metoprolol Tartrate 25 MG TAB PO SCH (08:32)
[2024-03-22] MEDS: Metolazone 5 MG TAB PO SCH (09:05)
[2024-03-22] MEDS: Metoprolol Tartrate 50 MG TAB PO SCH (09:06)
[2024-03-23] MEDS: traMADol HCl 50 MG TAB PO PRN (09:22)
[2024-03-23 14:31] VITALS: BMI 46.7
[2024-03-23] MEDS: Mag-Al 1200 mg/1200 mg/30 ML UDCUP PO PRN (21:17)
[2024-03-23] MEDS: diphenhydrAMINE 25 MG CAP PO PRN (22:43)
[2024-03-24 11:32] VITALS: BP 152/72; TEMP 98.5
== END 2024-03-24 13:30 | disposition home or self-care (01) | DRG 236 ==
LOC: SDC 06:18 → CCU 11:30 → 2NO 03-17 19:53
PROVIDERS: ADMIT Thoracic Surgery (Cardiothoracic Vascular Surgery); ATTEND Thoracic Surgery (Cardiothoracic Vascular Surgery)
PROC: 02100Z9 Bypass Coronary Artery, One Artery from Left Internal Mammary, Open Approach (ICD-10-PCS; principal; 2024-03-16)
PROC: 021109W Bypass Coronary Artery, Two Arteries from Aorta with Autologous Venous Tissue, Open Approach (ICD-10-PCS; 2024-03-16)
PROC: 06BQ4ZZ Excision of Left Saphenous Vein, Percutaneous Endoscopic Approach (ICD-10-PCS; 2024-03-16)
PROC: 02L70CK Occlusion of Left Atrial Appendage with Extraluminal Device, Open Approach (ICD-10-PCS; 2024-03-16)
PROC: 5A1221Z Performance of Cardiac Output, Continuous (ICD-10-PCS; 2024-03-16)
PROC: 6A550Z2 Pheresis of Platelets, Single (ICD-10-PCS; 2024-03-16)
PROC: 30233K1 Transfusion of Nonautologous Frozen Plasma into Peripheral Vein, Percutaneous Approach (ICD-10-PCS; 2024-03-16)
PROC: 4A133R1 Monitoring of Arterial Saturation, Peripheral, Percutaneous Approach (ICD-10-PCS; 2024-03-16)
PROC: 3E033XZ Introduction of Vasopressor into Peripheral Vein, Percutaneous Approach (ICD-10-PCS; 2024-03-16)
PROC: 30233J1 Transfusion of Nonautologous Serum Albumin into Peripheral Vein, Percutaneous Approach (ICD-10-PCS; 2024-03-16)
DX: I25.10 Atherosclerotic heart disease of native coronary artery without angina pectoris (principal); Z68.42 Body mass index [BMI] 45.0-49.9, adult; F33.1 Major depressive disorder, recurrent, moderate; J44.1 Chronic obstructive pulmonary disease with (acute) exacerbation; I10 Essential (primary) hypertension; E78.5 Hyperlipidemia, unspecified; E66.01 Morbid (severe) obesity due to excess calories; I48.91 Unspecified atrial fibrillation; E78.2 Mixed hyperlipidemia; K21.9 Gastro-esophageal reflux disease without esophagitis; F41.9 Anxiety disorder, unspecified; N40.1 Benign prostatic hyperplasia with lower urinary tract symptoms; G62.9 Polyneuropathy, unspecified; I65.21 Occlusion and stenosis of right carotid artery; G89.29 Other chronic pain; R41.3 Other amnesia; I69.311 Memory deficit following cerebral infarction; G47.33 Obstructive sleep apnea (adult) (pediatric); F09 Unspecified mental disorder due to known physiological condition
CPT/HCPCS: 36415; 36416; 36430; 71045; 80048; 80061; 82805; 85025; 85610; 85730; 86850; 86900; 86901; 93005; 93010; 93454; 93798; 94002; 94150; 94640; 97139; 99152; 99153; A4311; A4648; C1751; C1769; C1887; C1889; J0171; J0665; J1100; J1642; J1643; J1644; J1815; J1885; J1940; J2001; J2150; J2250; J2260; J2272; J2440; J2704; J2720; J3010; J3370; J3475; J3480; J3490; J7050; J7611; J7620; P9035; P9045; P9059; Q0162; Q9967; S0017; S0028